=== PATIENT | female | born 1955 | race Caucasian/White ===

== ENCOUNTER 2017-09-29 06:08 | Day surgery (SDC) | payer MEDICAID ==
[2017-09-29] MEDS ORDERED: Lactated Ringers 1,000 ML IV SCH (06:45)
[2017-09-29] MEDS ORDERED: fentaNYL 100 MCG/2 ML SDV ONE (07:22)
[2017-09-29] MEDS ORDERED: Propofol 200 MG/20 ML SDV ONE (07:22)
[2017-09-29] MEDS ORDERED: Midazolam 1 MG/ML 2 ML SDV ONE (07:22)
--- NOTE | 2017-09-29 11:15 | OR ---
DATE OF PROCEDURE: 09/29/2017 PREOPERATIVE DIAGNOSIS: Colon cancer screening. POSTOPERATIVE DIAGNOSIS: Diverticulosis. PROCEDURE: Colonoscopy to the cecum. SURGEON: Patricio Sullivan MD. ANESTHESIA: IV anesthesia with monitored anesthesia care. INDICATION: This 62-year-old white female is referred for a colonoscopy for colon cancer screening. Her last colonoscopic exam was done 11 years ago. I counseled her for the procedure including risks and alternatives, and she gave her informed consent to proceed. DESCRIPTION OF PROCEDURE: The patient was placed in the left lateral decubitus position. IV anesthesia was administered by the Anesthesia Service. Time-out was held. A rectal exam was performed, which was unremarkable. The flexible video Olympus colonoscope was introduced through her anus, up her rectum, and out her colon all the way to the cecum. Once the cecum was reached, the scope was slowly withdrawn, examining the mucosa throughout. We did encounter both right and left-sided diverticula. These were fairly scattered and few. There was no bleeding or inflammation associated with any of them. No other lesions were noted. No neoplastic lesions were seen. The scope was retroflexed in the rectum with the distal rectum appearing unremarkable. The scope was straightened and removed. She tolerated the procedure well. Patricio Sullivan MD /[id number] MTDD
== END 2017-09-29 10:00 | disposition home or self-care (01) ==
LOC: JP.SDS 06:08
PROVIDERS: ATTEND Surgery
DX: Z12.11 Encounter for screening for malignant neoplasm of colon (principal); K57.30 Diverticulosis of large intestine without perforation or abscess without bleeding; G47.33 Obstructive sleep apnea (adult) (pediatric); F32.9 Major depressive disorder, single episode, unspecified; Z87.891 Personal history of nicotine dependence; Z88.0 Allergy status to penicillin; Z88.8 Allergy status to other drugs, medicaments and biological substances
CPT/HCPCS: 45378; J2250; J2704; J3010; J7120

== ENCOUNTER 2019-05-15 06:11 | Day surgery (SDC) | payer BC, MEDICAID ==
[2019-05-15] MEDS ORDERED: Lactated Ringers 1,000 ML IV SCH (07:15)
[2019-05-15] MEDS ORDERED: Midazolam 1 MG/ML 2 ML SDV ONE (07:16)
[2019-05-15] MEDS ORDERED: fentaNYL 100 MCG/2 ML SDV ONE (07:16)
[2019-05-15] MEDS ORDERED: Propofol 200 MG/20 ML SDV ONE ×2 (07:16→07:56)
--- NOTE | 2019-05-15 15:00 | OR ---
DATE OF PROCEDURE: 05/15/2019 PREOPERATIVE DIAGNOSIS: Diarrhea. POSTOPERATIVE DIAGNOSIS: Diverticulosis and diarrhea. PROCEDURE: Colonoscopy to the cecum with random colonic biopsies. ANESTHESIA: IV anesthesia with monitored anesthesia care. SURGEON: Patricio Sullivan MD INDICATION: This 63-year-old white female is referred for a colonoscopy because of diarrhea. She says her last colonoscopic exam was done 2 years ago. I counseled her for the procedure including risks and alternatives, and she gave her informed consent to proceed. PROCEDURE IN DETAIL: The patient was placed in the left lateral decubitus position. IV anesthesia was administered by the Anesthesia Service. Time-out was held. A rectal exam was performed, which was unremarkable. The flexible video Olympus colonoscope was introduced through her anus, up her rectum and out her colon all way to the cecum. En route, we saw both left and right-sided diverticula. Once the cecum was reached , the scope was slowly withdrawn examining the mucosa throughout. No additional mucosal abnormalities were noted. No neoplastic lesions were seen. We did obtain random colonic biopsies throughout the entire colon and rectum. The scope was retroflexed in the rectum with the distal rectum appearing unremarkable. The scope was straightened and removed. She tolerated the procedure well. Patricio Sullivan MD /[id number] MTDD
== END 2019-05-15 09:41 | disposition home or self-care (01) ==
LOC: JP.SDS 06:11
PROVIDERS: ATTEND Surgery
DX: K57.30 Diverticulosis of large intestine without perforation or abscess without bleeding (principal); R19.7 Diarrhea, unspecified; K21.9 Gastro-esophageal reflux disease without esophagitis; G47.33 Obstructive sleep apnea (adult) (pediatric); F41.9 Anxiety disorder, unspecified; F32.9 Major depressive disorder, single episode, unspecified; E03.9 Hypothyroidism, unspecified; Z88.8 Allergy status to other drugs, medicaments and biological substances; Z88.0 Allergy status to penicillin
CPT/HCPCS: 45380; 88305; J2250; J2704; J3010; J7120

== ENCOUNTER 2024-12-08 06:29 | Day surgery (SDC) | payer BC ==
[2024-12-08] MEDS ORDERED: Midazolam 1 MG/ML 2 ML SDV ONE (07:24)
[2024-12-08] MEDS ORDERED: fentaNYL 50 MCG/ML SDV ONE (07:24)
[2024-12-08] MEDS ORDERED: Propofol 200 MG/20 ML SDV ONE (07:24)
[2024-12-08] MEDS: Lactated Ringers 1,000 ML IV SCH (07:50)
== END 2024-12-08 09:52 | disposition home or self-care (01) ==
LOC: JP.SDS 06:29
PROVIDERS: ATTEND Surgery
DX: Z12.11 Encounter for screening for malignant neoplasm of colon (principal); D12.2 Benign neoplasm of ascending colon; D12.4 Benign neoplasm of descending colon; K57.30 Diverticulosis of large intestine without perforation or abscess without bleeding; I10 Essential (primary) hypertension; E03.9 Hypothyroidism, unspecified; M65.831 Other synovitis and tenosynovitis, right forearm; Z79.890 Hormone replacement therapy; Z79.899 Other long term (current) drug therapy; Z80.0 Family history of malignant neoplasm of digestive organs
CPT/HCPCS: 00811; 45380; 45385; J2250; J2704; J3010; J7120